=== PATIENT | female | born 1970 | race Caucasian/White ===

== ENCOUNTER 2019-01-26 09:52 | Emergency (ER) | payer OTHER, SELFPAY ==
[~2019-01-26] VITALS: Ht 154.9 cm; Wt 84.9 kg
--- NOTE | 2019-01-26 10:07 | NUR ---
THIS RN IN TO ASSESS PT. PT ASKED TO CHANGE INTO GOWN. THIS RN LEFT ROOM FOR PRIVACY
--- NOTE | 2019-01-26 10:11 | NUR ---
48 Y/O FEMALE PRESENTS TO ED WITH C/O SOB. "I HAD PNA 2 YEARS AGO. SINCE THEN I'VE HAD AN INTERMITTENT COUGH SINCE THEN. SATURDAY I WAS WITH MY GRAND GIRLS AND I GOT REALLY SOB. IT TOOK ME A HALF HOUR TO CATCH MY BREATH. I HAD TIGHTNESS IN MY CHEST FROM NOT BEING ABLE TO BREATH SATURDAY. NOT ANYMORE." PT PLACED ON CONT PULSE OX, NIBP. NO C/O N/V/D, TRAUMA, SYNCOPE, CP
[2019-01-26] MEDS ORDERED: ALBUTEROL/IPRATROPIUM 2.5MG/0.5MG, 3 ML NPPB ONE (10:30)
[2019-01-26] MEDS ORDERED: ALBUTEROL/IPRATROPIUM 2.5MG/0.5MG, 3 ML ONE (10:30)
--- NOTE | 2019-01-26 10:34 | NUR ---
PT RESTING ON [place] PLAYING ON CELL PHONE. NO ACUTE DISTRESS NOTED. NO NEEDS REQUESTED AT THIS TIME. MEDICATION ADMINISTERED PER EMAR.
--- NOTE | 2019-01-26 11:54 | NUR ---
PT STATES "I FEEL MUCH BETTER AFTER THE TREATMENT." PT RESTING ON GURNEY. NO ACUTE DISTRESS NOTED. NO NEEDS REQUESTED AT THIS TIME.
[2019-01-26 12:27] VITALS: BP 122/72
--- NOTE | 2019-01-26 12:30 | NUR ---
Patient/Caregiver given discharge instructions and they have confirmed that they understand the instructions. Patient ambulatory with steady gait. PT LEFT WITH ALL PERSONAL BELONGINGS.
== END 2019-01-26 12:31 | disposition home or self-care (01) ==
LOC: ED 10:26
DX: J20.8 Acute bronchitis due to other specified organisms (principal); J45.909 Unspecified asthma, uncomplicated; F32.9 Major depressive disorder, single episode, unspecified; Z88.6 Allergy status to analgesic agent; Z88.8 Allergy status to other drugs, medicaments and biological substances
CPT/HCPCS: 93005; 94640; 99283; J7512; J7620